=== PATIENT | male | born 1985 | race African-American/Black ===

== ENCOUNTER 2021-12-09 00:07 | Emergency (ER) | payer BC, SELFPAY ==
[2021-12-09 00:14] VITALS: BP 133/62; PULSE 83; RESP 18; TEMP 36.9; O2SAT 99; BMI 24.3
--- NOTE | 2021-12-09 00:36 | HMH.EDBACK ---
ED Disposition Clinical Impression: Lumbar radiculopathy Disposition: Home, Self-Care Condition on Discharge: Good Instructions: DI for Back Pain With Sciatica Additional Instructions: use meds and see pcp for follow up Prescriptions: predniSONE [Prednisone 20mg Tab] 20 mg PO BID #10 tab Transmission Status: Pending to [facility] predniSONE [Prednisone 20mg Tab] 20 mg PO BID #10 tab Ketorolac Tromethamine [Toradol 10mg tablet] 10 mg PO Q6HP PRN #8 tablet MDD 40mg/day PRN Reason: Moderate To Severe Pain Ketorolac Tromethamine [Toradol 10mg tablet] 10 mg PO Q6HP PRN #8 tab MDD 40mg/day PRN Reason: Moderate To Severe Pain Transmission Status: Pending to [facility] Referrals: Provider,Referral, [Primary Care Provider] - - Critical Care Critical Care Time: No Attestation: On 12/09/21, the high probability of a clinically significant, sudden or life threatening deterioration of the following system(s) required my full and direct attention, intervention and personal management. The time I documented below is in addition to time spent performing reported procedures but includes the following listed in this critical care notation. Medical Decision Making - Medical Records Medical records reviewed: Yes: I reviewed the patient's medical records. - Jarod Inquiry Pt receiving controlled substance: No Vital Signs: 12/09/21 00:14 Temperature 98.5 F Temperature Source Oral Pulse Rate [Left] 83 Respiratory Rate 18 Blood Pressure [Right Arm] 133/62 Blood Pressure Mean [Right Arm] 85 02 Sat by Pulse Oximetry 99 Oxygen Delivery Method Room Air - Lab Data Lab results reviewed: Yes: I reviewed the patient's lab results. Lab Results 12/09/21 01:13: WBC 9.0, RBC 4.58 L, Hgb 14.3, Hct 42.1, MCV 91.7, MCH 31.1, MCHC 33.9, RDW 12.8, Plt Count 232, MPV 8.6, Neut % (Auto) 62.9, Lymph % (Auto) 26.7, Mineral % (Auto) 5.8, Eos % (Auto) 4.0, Baso % (Auto) 0.6, Neut # (Auto) 5.7, Lymph # (Auto) 2.4, Mineral # (Auto) 0.5, Eos # (Auto) 0.4, Baso # (Auto) 0.1, ESR 1 12/09/21 01:13: Sodium 136, Potassium 3.6, Chloride 105, Carbon Dioxide 28, Anion Gap 6.6, BUN 6 L, Creatinine 0.80, Estimated Creat Clear 134, Estimated GFR 109, Est GFR ( Amer) 132, Glucose 102 H, Calcium 10.2, Total Bilirubin 0.4, AST 28, ALT 15, Alkaline Phosphatase 59, Total Protein 6.3, Albumin 3.6, Globulin 2.7, Albumin/Globulin Ratio 1.3 Result diagrams: 12/09/21 01:13 12/09/21 01:13 Orders (Tests/Meds): ED MEDICATIONS Generic Name Dose Route Start Last Admin Trade Name Freq PRN Reason Stop Dose Admin Sodium Chloride 1,000 mls @ 999 mls/hr 12/09/21 01:00 12/09/21 00:57 Sod Chlor 0.9% 1000ml Bag IV 12/09/21 02:00 999 mls/hr .Q1H1M AMY Administration Discontinued Medications Generic Name Dose Route Start Last Admin Trade Name Freq PRN Reason Stop Dose Admin Ketorolac Tromethamine 30 mg 12/09/21 00:53 12/09/21 00:57 Ketorolac 30mg/Ml Vial IV 12/09/21 00:54 30 mg ONCE ONE Administration Methylprednisolone Sodium Succinate 125 mg 12/09/21 00:53 12/09/21 00:57 Methylprednisolone Sod Succ 125mg Vial IV 12/09/21 00:54 125 mg ONCE ONE Administration Morphine Sulfate 4 mg 12/09/21 02:00 12/09/21 02:04 Morphine 4mg/Ml Syringe IV 12/09/21 02:01 4 mg ONCE ONE Administration Ondansetron HCl 4 mg 12/09/21 02:01 12/09/21 02:03 Ondansetron 4mg/2ml Vial IV 12/09/21 02:02 4 mg ONCE ONE Administration - CT Data CT Scan: L-Spine Time Received: 02:[address] Reviewed: Yes: I have viewed the radiologist's interpretation Preliminary Findings: Abnormal (see report ) Medical Decision Narrative: has acute exacerbation of lumbar pain - no cauda equina sx - abn ct back Back Pain HPI - General Chief Complaint: Back Pain/Injury Stated Complaint: AO 12/09/21 2000 Injury Lower back Time Seen by Provider: 12/09/21 00:36 Mode of Arrival: Wheelchair Source of I
--- NOTE | 2021-12-09 00:47 | CT_ITS ---
PROCEDURE INFORMATION: Exam: CT Lumbar Spine Without Contrast Exam date and time: 12/09/2021 1:16 AM Age: 36 years old Clinical indication: Low back pain; Patient HX: PT states chronic pain that has worsened today. TECHNIQUE: Imaging protocol: Computed tomography of the lumbar spine without contrast. Radiation optimization: All CT scans at this facility use at least one of these dose optimization techniques: automated exposure control; mA and/or kV adjustment per patient size (includes targeted exams where dose is matched to clinical indication); or iterative reconstruction. COMPARISON: No relevant prior studies available. 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 Alignment remains satisfactory. L1-L2: No significant disc protrusion. No severe spinal canal stenosis. No significant neural foraminal narrowing. L2-L3: No significant disc protrusion. Mild ligamentum flavum hypertrophy. No severe spinal canal stenosis. No significant neural foraminal narrowing. L3-L4: No significant disc protrusion. Moderate ligamentum flavum hypertrophy. Mild spinal canal stenosis. Mild bilateral neural foraminal narrowing. L4-L5: No significant disc protrusion. Mild posterior annular bulging. Moderate ligamentum flavum hypertrophy. Mild spinal canal stenosis. Mild bilateral neural foraminal narrowing. L5-S1: No significant disc protrusion. Mild posterior annular bulging. Mild ligamentum flavum hypertrophy. No spinal canal stenosis. Mild right neural foraminal narrowing. Soft tissues: Unremarkable. IMPRESSION: 1. 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 No evidence of anterior spondylolisthesis of L5 on S1. 2. Mild stenosis at L3-L4 and L4-L5 due to ligamentum flavum hypertrophy at both levels. Mild bilateral neural foraminal narrowing at these levels. 3. Mild right neural foraminal narrowing at L5-S1.
[2021-12-09 01:23] LABS: Basophils # 0.1 K/mm3 (0-0.2); Basophils % 0.6 % (0.1-2.0); Eosinophils # 0.4 K/mm3 (0.0-0.4); Hematocrit 42.1 % (42.0-52.0); Hemoglobin 14.3 g/dL (14.1-18.0); Lymphocytes # 2.4 K/mm3 (0.7-4.5); Lymphocytes % 26.7 % (10-50); Mean Corpuscular HGB Conc 33.9 g/dL (31.8-35.4); Mean Corpuscular Hemoglobin 31.1 pg (27.0-31.2); Mean Corpuscular Volume 91.7 fl (80-94); Mean Platelet Volume 8.6 fl (7.4-10.4); Monocytes # 0.5 K/mm3 (0.1-1.0); Monocytes % 5.8 % (1.7-9.3); Neutrophils # 5.7 K/mm3 (1.8-7.8); Neutrophils % 62.9 % (37.0-80.0); Platelet Count 232 K/mm3 (142-424); Red Blood Count 4.58 M/mm3 (4.60-6.20); Red Cell Distribution Width 12.8 % (11.5-17.5)
[2021-12-09 01:30] LABS: Alanine Aminotransferase 15 U/L (12-78); Albumin Level 3.6 g/dl (3.5-5.0); Albumin/Globulin Ratio 1.3 (1.1-1.8); Alkaline Phosphatase 59 U/L (38-126); Anion Gap 6.6 mEq/L (5-15); Aspartate Amino Transferase 28 U/L (17-59); Bilirubin,Total 0.4 mg/dl (0.2-1.3); Blood Urea Nitrogen 6 mg/dl (9-20); Calcium 10.2 mg/dl (8.4-10.2); Carbon Dioxide 28 mmol/L (22.0-30.0); Chloride 105 mmol/L (98-107); Creatinine Clearance Estimated 134 mL/min (50-200); Estimated Glomerular Filt Rate 109 ml/min (>60); GFR (African American) 132 ML/MIN (>60); Globulin 2.7 g/dL (1.3-3.2); Glucose 102 mg/dl (74-100); Potassium 3.6 mmoL/L (3.5-5.1); Sodium 136 mmol/L (136-145); Total Protein,Serum 6.3 g/dl (6.3-8.2)
[2021-12-09 01:52] LABS: Erythrocyte Sedimentation Rate 1 mm/hr (0-15)
--- NOTE | 2021-12-09 02:01 | PC.NURSE ---
MD entered meds, given per MAR and updated pt on POC. No new needs
--- NOTE | 2021-12-09 02:33 | PC.NURSE ---
ROUNDED ON PT AT THIS TIME. LET HIM KNOW REPORTS WERE BACK AND MD WAS REVIEWING. NO NEW NEEDS
[2021-12-09 02:39] VITALS: BP 109/59; PULSE 60; RESP 16; TEMP 36.9; O2SAT 98
== END 2021-12-09 03:09 | disposition home or self-care (01) ==
PROVIDERS: Emergency Provider Emergency Medicine
DX: M54.16 Radiculopathy, lumbar region (principal); Y93.67 Activity, basketball; S79.812A Other specified injuries of left hip, initial encounter; Z89.511 Acquired absence of right leg below knee
CPT/HCPCS: 72131; 80053; 85025; 85651; 96365; 96375; 99284; J2405